=== PATIENT | male | born 1965 | race Hispanic/Latino ===

== ENCOUNTER 2016-11-04 08:34 | Day surgery (SDC) | payer OTHER ==
[2016-11-03 09:59] VITALS: BMI 19.1
[2016-11-04] MEDS ORDERED: Propofol 10 mg/ml Inj (20 ML) ONE (09:35)
[2016-11-04] MEDS ORDERED: Midazolam 2 MG/2 ML VIAL ONE ×2 (09:35)
--- NOTE | 2016-11-04 10:16 | CP.SDSHP ---
Same Day Surgery H & P - History Proposed Procedure: CT guided lung nodule biopsy. Pre-Op Diagnosis: Lymphoma - Allergies Allergies: Allergies Penicillins Allergy (Intermediate, Verified 11/03/16 09:58) RASH - Physical Exam Mental Status: Alert & Oriented x3 Neuro: WNL Heart: WNL Lungs: WNL - Impression Impression: Pt with NHL and recent PET scan showing PET+ right pleural thickening. Pt is referred for image guided lung biopsy. Informed consent obtained and risk of PTX and chest tube explained to the patient. Pt. Evaluated Today:Candidate for Anesthesia & Procedure: Yes (ASA 2 Malampati 2) - Date & Time Date: 11/04/16 Time: 09:50 Short Stay Discharge - Short Stay Discharge Admitting Diagnosis/Reason for Visit: NHL
--- NOTE | 2016-11-04 10:17 | PCM.SURG1 ---
Surgeon's Initial Post Op Note - Surgeon's Notes Surgeon: Slade Collier MD Rn Nicu: NONE Type of Anesthesia: IV Sedation Pre-Operative Diagnosis: Lymphoma Operative Findings: CT showed right nodular pleural thinking increased since PET scan. Post-Operative Diagnosis: Lymphoma Operation Performed: CT guided right pleural mass biopsy. Specimen/Specimens Removed: 20 g core x 2 Estimated Blood Loss: EBL {In ML}: 0 Blood Products Given: N/A Drains Used: No Drains Post-Op Condition: Fair Date of Surgery/Procedure: 11/04/16 Time of Surgery/Procedure: 10:10
[2016-11-04 11:01] VITALS: BP 88/68; PULSE 68; RESP 18; TEMP 97; O2SAT 98
--- NOTE | 2016-11-04 16:09 | RAD ---
PROCEDURE: CHEST RADIOGRAPH, 1 VIEW HISTORY: Status post right lung biopsy. COMPARISON: Chest PA and lateral 05/27/2016 FINDINGS: LUNGS: Study slightly rotated towards the right. The smaller right hemithorax is in part attributed to this. The blunted right costophrenic angle consistent with right pleural effusion with or without consolidation and pleural thickening here is similar. The right central line tip in the right atrium is as before. No pneumothorax seen. PLEURA: As above CARDIOVASCULAR: Normal. OSSEOUS STRUCTURES: No significant abnormalities. VISUALIZED UPPER ABDOMEN: Normal. OTHER FINDINGS: None. IMPRESSION: No pneumothorax seen. A small right pleural effusion with or without pleural thickening -with or without the subsegmental atelectasis here is not significantly changed.
--- NOTE | 2016-11-06 09:27 | CT ---
PROCEDURE: Date of procedure: 11/04/2016 Procedure: 1. CT-guided lung mass biopsy, CPT [address] Guidance for biopsy, [address] Medications: The patient was sedated by anesthesiologist along with physiologic monitoring. HISTORY: Non-Hodgkin's lymphoma and PET positive mass along the right pleura. TECHNIQUE: Following informed consent, the Pt's chest was marked. The Pt was placed prone on the CT table and procedure time out was performed. A noncontrast CT scan was performed. Noncontrast CT scan showed nodular thickening of the right posterior pleural. A skin localizer was placed on the patient's right back and a repeat CT scan was performed. The skin was marked, prepped, and draped in the usual sterile fashion. After the skin was anesthetized with lidocaine and the patient sedated by the anesthesiologist, a 20 gauge core needle was advanced percutaneously under direct CT guidance into the mass. Upon confirmation of needle position, two 20-gauge core specimens were obtained and sent for routine pathology. The needle was removed and a xeroform dressing was applied. A post biopsy CT scan showed no pneumothorax. IMPRESSION: CT guided core biopsy right pleural base mass.
== END 2016-11-04 12:48 | disposition home or self-care (01) ==
LOC: C.SPRAD 08:34
PROVIDERS: ATTEND Radiology Vascular & Interventional Radiology
DX: J90 Pleural effusion, not elsewhere classified (principal)
CPT/HCPCS: 32405; 71010; 88305; J2250; J3010